=== PATIENT | female | born 1990 | race Two or more races ===

== ENCOUNTER → 2024-03-15 | Outpatient (CLI) | payer MEDICAID, SELFPAY ==
--- NOTE | 2024-03-15 | XR_ITS ---
Examination: Complete OB ultrasound, less than 14 weeks, transabdominal Date and time of exam: March 15, 2024 at 1627 hours INDICATIONS: Diagnosis size dates discrepancy, history vaginal discharge and pain Technique: Obstetrical ultrasound images less than 14 weeks performed via transabdominal imaging Findings: A normal shaped single intrauterine gestation is present in the uterus. pole 5.5 cm corresponds to 12 weeks 1 day gestational age Cardiac motion 157 BPM Ultrasonographic survey of visible and placental structures unremarkable. Amniotic fluid volume appears appropriate for this estimated gestational age. Right ovary 3.1 x 1.9 x 2.5 cm arterial flow 14 mm cyst Left ovary obscured by bowel gas IMPRESSION: Viable intrauterine gestation 12 weeks 1 day.
== END | disposition home or self-care (01) ==
PROVIDERS: Referring Provider Obstetrics & Gynecology; Visit Provider Obstetrics & Gynecology
DX: O26.849 Uterine size-date discrepancy, unspecified trimester (principal); Z3A.12 12 weeks gestation of pregnancy
CPT/HCPCS: 76801

== ENCOUNTER 2024-10-05 00:08 | Inpatient (IN) | payer MEDICAID, SELFPAY ==
[2024-10-05] VITALS (100 sets, daily range): BP systolic 103–191; BP diastolic 55–102; PULSE 61–107; RESP 16–99; TEMP 36.4–37.4; O2SAT 85–100; BMI 33.4
--- NOTE | 2024-10-05 00:51 | PD.LDHP ---
Documentation for date of: 10/05/24 OB Labor/Induct. HPI History of Present Illness Chief complaint: labor pains : 6 Para: 4 Term pregnancies: 4 pregnancies: 1 Living children: 4 History of Abortions: Spontaneous and Elective: 0 History of Vaginal deliveries: 4 History of sections: No History of : No SANDRA: 10/03/24 Gestational Age (weeks): 40 Gestational Age (days): 2 History of present illness: 34-year-old 6 para 4-1-0-4 with intrauterine at 40 weeks and 2 days presents to maternal unit complaining of labor pains and is noted to be 8 cm. She denies any leaking or bleeding. She reports normal movement. She has care at [facility] with Dr. Mustafa. She denies any problems during her . Group B strep is negative. Comments: PMHx: Denies PSHx: Denies FHx: See record Allergies: NKDA Meds: MVI OB hx: Full term x 4 and PPROM at 21 wks with IUFD. Social history: Denies any alcohol drug use or smoking Review of Systems Review of Systems Narrative Review of Systems: Denies any chest pain palpitations cough fever shortness of breath or lower extremity pain. Denies any headache change in vision or right upper quadrant pain. Past Medical History Surgical History SURGICAL: Negative Section Meds Home Medications and Allergies Home Medications ?Medication ?Instructions ?Recorded ?Confirmed ?Type vit no.95-ferrous 1 tab PO QDAY 03/16/23 10/05/24 History fumarate 28 mg-folic acid 800 mcg tablet () Allergies Allergy/AdvReac Type Severity Reaction Status Date / Time No Known Allergies Allergy Verified 03/22/23 07:43 OB Exam Physical Exam Vital signs: Pulse BP 62 129/70 10/05/24 00:22 10/05/24 00:22 Routine HEENT Exam Comments: Within normal limits Routine Respiratory Exam Comments: Clear to auscultation bilaterally Routine Cardiovascular Exam Comments: Regular rate and rhythm Routine Abdominal Exam Comments: Gravid term size estimated weight 7.5 pounds Detailed Labor and Delivery Exam Dilation (cm): 8 Effacement (%): 70 station: -1 Presentation: Vertex Membranes: intact Comments: Per RN exam Routine Extremities Exam Comments: Nontender Routine Skin Exam Comments: No gross rashes or lesions Routine Neurological Exam Comments: No deficit OB Results Labs 10/05/24 00:35 Impressions Impression: IUP 40 weeks 2 days Active labor Anticipate spontaneous vaginal delivery Informed consent was obtained. Patient was made aware of the risks and complications of operative vaginal delivery and delivery and she agrees with these modes of delivery if indicated.
[2024-10-05 01:01] LABS: Basophils # (Auto) 0.0 Thou/mm3 (0.0-0.2); Basophils % (Auto) 0 % (0-2.5); Eosinophils # (Auto) 0.1 Thou/mm3 (0.0-0.5); Eosinophils % (Auto) 1 % (0-10); Hematocrit 30.6 % (36.0-46.0); Hemoglobin 9.5 g/dL (12.0-16.0); Immature Granulocytes Auto 0.09 Thou/mm3 (0.00-0.00); Lymphocytes # (Auto) 1.4 Thou/mm3 (1.0-4.8); Lymphocytes % (Auto) 18 % (10-50); Mean Corpuscular HGB Conc 31.0 g/dl (31.0-37.0); Mean Corpuscular Hemoglobin 26.7 pg (25.0-35.0); Mean Corpuscular Volume 86 fL (80-100); Monocytes # (Auto) 0.4 Thou/mm3 (0.0-0.8); Monocytes % (Auto) 5 % (0-12); Neutrophils # (Auto) 5.7 Thou/mm3 (1.8-7.7); Neutrophils % (Auto) 75 % (37-80); Nucleated Red Blood Cell # 0.03 Thou/mm3 (0.00-0.00); Nucleated Red Blood Cell % 0 /100 WBC (0); Platelet Count 177 Thou/mm3 (140-440); RDW Standard Deviation 49.4 fL (36.4-46.3); Red Blood Count 3.56 Miln/mm3 (4.00-5.20); White Blood Count 7.6 Thou/mm3 (3.6-11.0)
[2024-10-05 01:53] LABS: Syphilis Nonreactive (Nonreactive)
--- NOTE | 2024-10-05 04:07 | PD.LDPN ---
Documentation for date of: 10/05/24 OB Labor Progress Note Pelvic Exam Dilation (cm): 9 Effacement (%): 100 station: 0 Amniotic membrane status: Ruptured Comments: AROM Contractions Monitor mode: External Contraction frequency: 2-3 Contraction intensity: Moderate Status status: Category l Assessment and Plan Comments: Anticipate
[2024-10-05] MEDS: MINERAL OIL 30 ML UDC TOP (05:54)
[2024-10-05] MEDS: IBUPROFEN TAB 400 MG TABLET 800 MG PO ×2 (06:07→15:14)
[2024-10-05] MEDS: OXYTOCIN in NS 20 units 20 UNIT/1,000 ML BAG 125 UNIT IV (06:09)
[2024-10-05] MEDS: BENZO/LANO/ALOE (Dermoplast) 60 GM CAN 1 SPRAY TOP (06:12)
--- NOTE | 2024-10-05 06:23 | ESDS_ITS ---
DS: Providers Provider Date of admission: 10/05/24 00:29 Primary care physician: Physician No Primary/Family Admitting Provider: Aden Darby MD Attending Provider on Admission: Aden Darby MD Attending Provider on DC: Aden Darby MD Discharging Provider: Aden Darby MD DS: Diagnosis Problem List Completed Was Problem List Reviewed/Reconciled?: Yes Summary/Hosp Course Brief History: 34-year-old 6 para 4-1-0-4 with intrauterine at 40 weeks and 2 days presents to maternal unit complaining of labor pains and is noted to be 8 cm. She denies any leaking or bleeding. She reports normal movement. She has care at [facility] with Dr. Mustafa. She denies any problems during her . Group B strep is negative. Peripartum Data Delivery Method: Normal Vaginal Delivery Episiotomy Description: None Maxwell 1: Gender: Male Disposition of : home Time Spent with Patient Time attestation: Total time spent providing and/or coordinating discharge services: Exam Vital Signs Temp Pulse Resp BP Pulse Ox O2 Del Method 98.2 F 76 19 121/58 L 98 Room Air 10/05/24 06:07 10/05/24 06:21 10/05/24 06:04 10/05/24 06:21 10/05/24 06:22 10/05/24 06:04 Discharge Plan Plan Patient Disposition: HOME (Self Care) Patient condition on transfer: Stable Prescriptions/Referrals Prescriptions/Med Rec: New ibuprofen 800 mg tablet 800 mg PO Q6H PRN (Reason: pain) Qty: 30 0RF Continued PNV no.95-ferrous fumarate-FA [] 28 mg iron- 800 mcg tablet 1 tab PO QDAY Discontinued acetaminophen 500 mg capsule 500 mg PO Q6H PRN (Reason: fever or pain) Qty: 30 0RF ibuprofen 800 mg tablet 800 mg PO Q8H Qty: 20 0RF Referrals: No Primary/Family,Physician [Primary Care Provider] - Patient/Caregiver Discharge Instructions Discharge Activity: activity as tolerated Other Discharge Activity Instructions:: Follow up with Dr Mustafa in 6 weeks. Print Language: Urdu Stand Alone Forms: Jessenia Award Info., Patient Portal Info Letter Planned Discharge Date 10/06/24
--- NOTE | 2024-10-05 06:35 | PD.LDDELS ---
Data (Waters) Data Hx Section: No : 6 Term: 4 : 1 Livin Abortions: Spontaneous & Theraputic: 0 Delivery Data (Waters) Labor Data Initiation of labor: Spontaneous Induction/Augmentation Agent: None ROM date: 10/05/24 ROM time: 03:55 Amniotic membrane rupture type: Artificial Amniotic fluid description: Clear Delivery Data EDC: 10/03/24 EDC calculated by:: other Onset of labor date: 10/05/24 Onset of labor time: 00:00 Complete dilation date: 10/05/24 Complete dilation time: 05:24 delivery date: 10/05/24 delivery time: 05:59 Gestational age (weeks): 40 Gestational age (days): 2 Placenta delivery date: 10/05/24 Placenta delivery time: 06:09 Stage 1 total time: Labor - Stage 1 Duration 5 hours and 24 minutes Delivered by: GEILING Delivery nurse: MONIE Martinez [place] nurse: MONIE Heredia Lead Installer at delivery: No Support person(s) at delivery: FOB Other staff at delivery: MONIE GRACIA RN Delivery Method Delivery method: Normal Vaginal Delivery Presentation: Vertex position: OA Anesthesia Type Anesthesia Type: None Placenta Placenta delivery description: Spontaneous Cord blood sent to lab: Yes cord blood collection: Cord Blood Type Episiotomy Episiotomy description: None EBL Estimated blood loss (ml): 250 Umbilical Cord cord description: 3 Vessels Complications Complications: None Data ([place]aters) [place] Data order: 1 's gender: Male Identification band number: [id number] weight (gms): 8 lb 9.216 oz Weight (pounds): 8 lbs and 9.2 ozs length: 19.69 in 1 minute: 8 5 minutes: 9
[2024-10-05 12:16] LABS: Basophils # (Auto) 0.0 Thou/mm3 (0.0-0.2); Basophils % (Auto) 0 % (0-2.5); Eosinophils # (Auto) 0.0 Thou/mm3 (0.0-0.5); Eosinophils % (Auto) 0 % (0-10); Hematocrit 26.7 % (36.0-46.0); Immature Granulocytes Auto 0.11 Thou/mm3 (0.00-0.00); Lymphocytes # (Auto) 0.7 Thou/mm3 (1.0-4.8); Lymphocytes % (Auto) 5 % (10-50); Mean Corpuscular HGB Conc 31.5 g/dl (31.0-37.0); Mean Corpuscular Hemoglobin 26.8 pg (25.0-35.0); Mean Corpuscular Volume 85 fL (80-100); Monocytes # (Auto) 0.4 Thou/mm3 (0.0-0.8); Monocytes % (Auto) 3 % (0-12); Neutrophils # (Auto) 13.5 Thou/mm3 (1.8-7.7); Neutrophils % (Auto) 91 % (37-80); Nucleated Red Blood Cell # 0.02 Thou/mm3 (0.00-0.00); Nucleated Red Blood Cell % 0 /100 WBC (0); Platelet Count 167 Thou/mm3 (140-440); RDW Standard Deviation 49.0 fL (36.4-46.3); Red Blood Count 3.13 Miln/mm3 (4.00-5.20); White Blood Count 14.8 Thou/mm3 (3.6-11.0)
[2024-10-05 12:28] LABS: Hemoglobin 8.4 g/dL (12.0-16.0)
[2024-10-05 13:39] LABS: Chlamydia trachomatis PCR Negative (Not Detect); Neisseria Gonorrhoeae DNA PCR Negative (Not Detect); Trichomonas Negative (Negative)
[2024-10-06 03:46] VITALS: BP 117/73; PULSE 72; RESP 18; TEMP 36.7; O2SAT 98
[2024-10-06 07:40] VITALS: BP 109/72; PULSE 79; RESP 18; TEMP 37; O2SAT 98
[2024-10-06 17:00] VITALS: BP 122/85; PULSE 85; RESP 18; TEMP 36.7; O2SAT 97
--- NOTE | 2024-10-06 17:41 | PD.LDPPPRG ---
Subjective Subjective Interval history: Patient is a 34-year-old -0-1-5 who delivered yesterday vaginally about 6:00 in the morning with Dr Darby. All her care was with Dr. Mustafa. She was 40 weeks and 3 days. Today patient is resting comfortably in bed she denies any cramping. She is actually wearing her own clothes and wants to go home. Exam Vital Signs Temp Pulse Resp BP Pulse Ox O2 Del Method 98.6 F 79 18 109/72 98 Room Air 10/06/24 07:40 10/06/24 07:40 10/06/24 07:40 10/06/24 07:40 10/06/24 07:40 10/06/24 07:40 Narrative Exam Fundus firm nontender extremities show no significant edema or erythema. Objective Labs 10/05/24 11:55 Assessment & Plan Problem List (1) care following vaginal delivery: Problem details: The patient is day #1 doing well. Discharged home in stable condition. Discharge instructions given Status: Acute Time Spent With Patient Time: Total time spent is greater than 50% in coordination of care (as documented) at patient's floor/unit and/or counseling patient: Time with patient: less than 15 minutes
--- NOTE | 2024-10-06 17:43 | PD.LDDS ---
DS: Providers Provider Date of admission: 10/05/24 00:29 Primary care physician: Physician No Primary/Family Admitting Provider: Aden Darby MD Attending Provider on Admission: Aden Darby MD Consults: 10/05/24 07:09 Referral Routine Comment: Attending Provider on DC: Katina Carpio MD ([facility]) Discharging Provider: Katina Carpio MD ([facility]) Anticipated date of discharge: 10/06/24 DS: Diagnosis Discharge Diagnosis (1) care following vaginal delivery: Status: Acute Assessment & Plan: Discharge home day #1 in stable condition. Problem List Completed Was Problem List Reviewed/Reconciled?: Yes Summary/Hosp Course Brief History: 34-year-old 6 para 4-1-0-4 with intrauterine at 40 weeks and 2 days presents to maternal infant unit complaining of labor pains and is noted to be 8 cm. She denies any leaking or bleeding. She reports normal movement. She has care at [facility] with Dr. Mustafa. She denies any problems during her . Group B strep is negative. Patient was admitted by Dr Darby. Please see history and physical for further details. Patient went on to have a vaginal delivery around 6:00 in the morning 10/05/[address] Darby. Please see delivery notes for further details. day #1 patient was ambulating voiding tolerating a general diet her bleeding was minimal. Her predelivery hemoglobin was 9.5 postdelivery hemoglobin was 8.4. She was discharged home day #1 in stable condition. Peripartum Data Delivery Method: Normal Vaginal Delivery Episiotomy Description: None Laceration Description: see Delivery Summary complications: none Status at Discharge Cognitive/behavioral status at discharge: Patient is alert and oriented x 3 in no apparent distress Functional status at discharge: independent ambulation Overall status at discharge: patient is progressing back to baseline Time Spent with Patient Time attestation: Total time spent providing and/or coordinating discharge services: Time spent: Less than 30 minutes Specific discharge activities: Pelvic rest x 6 weeks. Exam Vital Signs Temp Pulse Resp BP Pulse Ox O2 Del Method 98.6 F 79 18 109/72 98 Room Air 10/06/24 07:40 10/06/24 07:40 10/06/24 07:40 10/06/24 07:40 10/06/24 07:40 10/06/24 07:40 Narrative Exam Patient is alert and oriented x 3 in no apparent distress. Fundus is firm nontender extremities show no significant edema or erythema. Discharge Plan Plan Patient Disposition: HOME (Self Care) Disposition Comment: Stable Patient condition on transfer: Stable Prescriptions/Referrals Prescriptions/Med Rec: New ibuprofen 800 mg tablet 800 mg PO Q6H PRN (Reason: pain) Qty: 30 0RF Continued PNV no.95-ferrous fumarate-FA [] 28 mg iron- 800 mcg tablet 1 tab PO QDAY Discontinued acetaminophen 500 mg capsule 500 mg PO Q6H PRN (Reason: fever or pain) Qty: 30 0RF ibuprofen 800 mg tablet 800 mg PO Q8H Qty: 20 0RF Referrals: No Primary/Family,Physician [Primary Care Provider] - Patient/Caregiver Discharge Instructions Discharge Activity: activity as tolerated Other Discharge Activity Instructions:: Follow up with Dr Mustafa in 6 weeks. Other Discharge Diet Instructions: High iron diet Education Materials: After a Vaginal , Breast Care After , Feel Healthy After Print Language: Moroccan Stand Alone Forms: Jessenia Award Info., Patient Portal Info Letter Discharge Order Discharge Orders: Discharge (Routine); Ordered 10/06/24 Ordered By: Katina Carpio ([facility]) Planned Discharge Date 10/06/24
== END 2024-10-06 19:07 | disposition home or self-care (01) | DRG 560 ==
LOC: S4SX 08:09 → S4NX 10:08
PROVIDERS: Admitting Provider Specialist; Visit Provider Specialist
DX: O48.0 Post-term pregnancy (principal); Z37.0 Single live birth; Z3A.40 40 weeks gestation of pregnancy
CPT/HCPCS: 36415; 59025; 85025; 86780; 86850; 86900; 86901; 87491; 87591; 87661; J2590; A9270